=== PATIENT | male | born 1980 | race American Indian/Alaskan Native ===

== ENCOUNTER 2016-11-21 07:38 | Emergency (ER) | payer SELFPAY ==
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
[2016-11-21] MEDS ORDERED: TORADOL IM ONE ×2 (09:03→09:22)
--- NOTE | 2016-11-21 09:21 | Emergency Department Report ---
ED General Adult HPI - General Chief complaint: Back Pain/Injury Stated complaint: RT LEG/LB PAIN Time Seen by Provider: 11/21/16 08:58 Source: patient Mode of arrival: Ambulatory Limitations: No Limitations - History of Present Illness Initial comments: Patient here complaining of right leg pain and left lower back pain that is 9 out of 10. He said he thinks he pulled a muscle because he does heavy lifting at work and after doing heavy lifting that's when the pain started. The pain is achy and use [id number] medication but did not help. 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 She says her right leg is usually larger than his left leg. He is complaining of pain anteriorly to his right leg. Denies any calf pain. Denies any recent long distance travel by airplane or car. Denies any recent surgery. Patient is a smoker. MD Complaint: left lower back pain and right leg pain. Onset/Timin -: days(s) Location: back, right, lower extremity Radiation: non-radiation Severity scale (0 -10): 9 Quality: aching Consistency: constant Improves with: none Worsens with: none Associated Symptoms: denies other symptoms. denies: confusion, chest pain, cough, diaphoresis, fever/chills, headaches, loss of appetite, malaise, nausea/ vomiting, rash, seizure, shortness of breath, syncope, weakness Treatments Prior to Arrival: NSAID - Related Data Previous Rx's Medication Instructions Recorded Last Taken Type Cyclobenzaprine [Flexeril] 10 mg PO TID PRN #12 tablet 11/21/16 Unknown Rx Ibuprofen [Motrin] 600 mg PO Q8H PRN #15 tablet 11/21/16 Unknown Rx Allergies Allergy/AdvReac Type Severity Reaction Status Date / Time seafood Allergy Swelling Uncoded 11/21/16 07:40 ED Review of Systems ROS: Stated complaint: RT LEG/LB PAIN Other details as noted in HPI Comment: All other systems reviewed and negative Constitutional: denies: chills, fever ENT: denies: throat pain, congestion Respiratory: denies: cough, orthopnea, shortness of breath, SOB with exertion, SOB at rest, stridor, wheezing Cardiovascular: denies: chest pain, palpitations, dyspnea on exertion, edema, syncope Gastrointestinal: denies: abdominal pain, nausea, vomiting, diarrhea Genitourinary: denies: urgency, dysuria, frequency, hematuria, discharge, testicular pain, testicular mass Musculoskeletal: back pain (left lower back), arthralgia. denies: joint swelling, myalgia Skin: denies: rash Neurological: denies: headache, weakness, numbness, paresthesias, confusion, abnormal gait, vertigo ED Past Medical Hx - Past Medical History Previous Medical History?: Yes Additional medical history: right leg with blood clot - Surgical History Past Surgical History?: No - Family History Family history: hypertension - Social History Smoking Status: Current Every Day Smoker Substance Use Type: Non Opiate Pain - Medications Home Medications: Home Medications Medication Instructions Recorded Confirmed Last Taken Type Cyclobenzaprine [Flexeril] 10 mg PO TID PRN #12 tablet 11/21/16 Unknown Rx Ibuprofen [Motrin] 600 mg PO Q8H PRN #15 tablet 11/21/16 Unknown Rx ED Physical Exam - General Limitations: No Limitations General appearance: alert, in no apparent distress - Head Head exam: Present: atraumatic, normocephalic, normal inspection - Eye Eye exam: Present: normal appearance, PERRL, EOMI. Absent: periorbital swelling , periorbital tenderness Pupils: Present: normal accommodation - ENT ENT exam: Present: normal exam, normal orophraynx, mucous membranes moist, TM's normal bilaterally, normal external ear exam - Neck Neck exam: Present: normal inspection, full ROM. Absent: tenderness, meningismus, lymphadenopathy - Respiratory Respiratory exam: Present: normal lung sounds bilaterally. Absent: respiratory distress, chest wall tenderness - Cardiovascular Cardiovascular Exam: Present: regular rate, normal rhythm, normal heart sounds - GI/Abdominal GI/Abdominal exam: Present: soft, normal bowel sounds. Absent: distended, tenderness, guarding, rebound, rigid - Extremities Exam Extremities exam: Present: normal inspection, full ROM, normal capillary refill. Absent: tenderness, pedal edema, joint swelling, calf tenderness - Expanded Lower Extremity Exam Right Hip exam: Present: normal inspection, full ROM, pelvic stability. Absent: tenderness, swelling, abrasion, laceration, ecchymosis, deformity, crepidus, dislocation, erythema, external rotation, internal rotation, shortening Upper Leg exam: Present: normal inspection, full ROM. Absent: tenderness, swelling, abrasion, laceration, ecchymosis, deformity, crepidus, dislocation, erythema Knee exam: Present: normal inspection, full ROM, full knee extension. Absent: tenderness, swelling, abrasion, laceration, ecchymosis, deformity, crepidus, dislocation, erythema, effusion, pain w/ pronation/supination Lower Leg exam: Present: normal inspection, full ROM, swelling. Absent: tenderness, abrasion, laceration, ecchymosis, deformity, crepidus, dislocation, erythema, palpable cord, Sondra's sign Ankle exam: Present: normal inspection, full ROM. Absent: tenderness, swelling , abrasion, laceration, ecchymosis, deformity, crepidus, dislocation, erythema Foot/Toe exam: Present: normal inspection, full ROM. Absent: tenderness, swelling, abrasion, laceration, ecchymosis, deformity, crepidus, dislocation, erythema, amputation, puncture wound, foreign body, calcaneal tenderness, tenderness at base of 5th metatarsal, nail avulsion, subungual hematoma Neuro vascular tendon exam: Present: no vascular compromise. Absent: pulse deficit, abnormal cap refill, motor deficit, sensory deficit, tendon deficit, extremity cold to touch, pallor, abnormal 2-point discrimination, decreased fine /light touch, foot drop, peroneal nerve deficit, significant pain with passive ROM of distal joint Gait: Positive: observed and normal - Back Exam Back exam: Present: normal inspection, full ROM, muscle spasm (left lumbar paraspinal). Absent: tenderness, CVA tenderness (R), CVA tenderness (L), paraspinal tenderness, vertebral tenderness, rash noted - Expanded Back Exam Expanded Back exam: Absent: saddle anesthesia Back exam: Positive Straight Leg Raise: Left, Right - Neurological Exam Neurological exam: Present: alert, oriented X3, normal gait, reflexes normal. Absent: motor sensory deficit - Psychiatric Psychiatric exam: Present: normal affect, normal mood - Skin Skin exam: Present: warm, dry, intact, normal color. Absent: rash ED Course Vital Signs 11/21/16 11/21/16 11/21/16 07:40 09:40 11:22 Temperature 98.4 F 98.2 F Pulse Rate 65 79 Respiratory 20 18 18 Rate Blood Pressure 135/71 Blood Pressure 104/46 [Right] O2 Sat by Pulse 100 100 Oximetry - Reevaluation(s) Reevaluation #1: 11/21/16 12:33 Patient given Toradol 60 mg IM and Deltasone 60 mg by mouth which relieved his pain. ED Medical Decision Making - Lab Data Result diagrams: 11/21/16 09:44 11/21/16 09:44 Lab Results 11/21/16 11/21/16 11/21/16 Range/Units 09:15 09:44 09:44 WBC 4.1 L (4.5-11.0) K/mm3 RBC 4.54 (3.65-5.03) M/mm3 Hgb 14.4 (11.8-15.2) gm/dl Hct 43.0 (35.5-45.6) % MCV 95 H (84-94) fl MCH 32 (28-32) pg MCHC 33 (32-34) % RDW 14.0 (13.2-15.2) % Plt Count 198 (140-440) K/mm3 Lymph % (Auto) 32.7 (13.4-35.0) % Morris % (Auto) 9.9 H (0.0-7.3) % Eos % (Auto) 1.1 (0.0-4.3) % Baso % (Auto) 0.9 (0.0-1.8) % Lymph # 1.3 (1.2-5.4) K/mm3 Morris # 0.4 (0.0-0.8) K/mm3 Eos # 0.0 (0.0-0.4) K/mm3 Baso # 0.0 (0.0-0.1) K/mm3 Seg Neutrophils % 55.4 (40.0-70.0) % Seg Neutrophils # 2.3 (1.8-7.7) K/mm3 PT 12.6 (12.2-14.9) Sec. INR 0.95 (0.87-1.13) APTT 28.5 (24.2-36.6) Sec. D-Dimer < 135.00 (0-234) ng/mlDDU Sodium (137-145) mmol/L Potassium (3.6-5.0) mmol/L Chloride (98-107) mmol/L Carbon Dioxide (22-30) mmol/L Anion Gap mmol/L BUN (9-20) mg/dL Creatinine (0.8-1.5) mg/dL Estimated GFR ml/min BUN/Creatinine Ratio % Glucose (75-100) mg/dL Calcium (8.4-10.2) mg/dL Urine Color Yellow (Yellow) Urine Turbidity Clear (Clear) Urine pH 5.0 (5.0-7.0) Ur Specific Singer 1.026 (1.003-1.030) Urine Protein <15 mg/dl (Negative) mg/dL Urine Glucose (UA) Neg (Negative) mg/dL Urine Ketones Neg (Negative) mg/dL Urine Blood Neg (Negative) Urine Nitrite Neg (Negative) Urine Bilirubin Neg (Negative) Urine Urobilinogen < 2.0 (<2.0) mg/dL Ur Leukocyte Esterase Neg (Negative) Urine WBC (Auto) 4.0 (0.0-6.0) /HPF Urine RBC (Auto) 3.0 (0.0-6.0) /HPF U Epithel Cells (Auto) 1.0 (0-13.0) /HPF Urine Mucus Few /HPF /01/02 Range/Units 09:44 WBC (4.5-11.0) K/mm3 RBC (3.65-5.03) M/mm3 Hgb (11.8-15.2) gm/dl Hct (35.5-45.6) % MCV (84-94) fl MCH (28-32) pg MCHC (32-34) % RDW (13.2-15.2) % Plt Count (140-440) K/mm3 Lymph % (Auto) (13.4-35.0) % Morris % (Auto) (0.0-7.3) % Eos % (Auto) (0.0-4.3) % Baso % (Auto) (0.0-1.8) % Lymph # (1.2-5.4) K/mm3 Morris # (0.0-0.8) K/mm3 Eos # (0.0-0.4) K/mm3 Baso # (0.0-0.1) K/mm3 Seg Neutrophils % (40.0-70.0) % Seg Neutrophils # (1.8-7.7) K/mm3 PT (12.2-14.9) Sec. INR (0.87-1.13) APTT (24.2-36.6) Sec. D-Dimer (0-234) ng/mlDDU Sodium 143 (137-145) mmol/L Potassium 4.1 (3.6-5.0) mmol/L Chloride 104.5 (98-107) mmol/L Carbon Dioxide 24 (22-30) mmol/L Anion Gap 19 mmol/L BUN 14 (9-20) mg/dL Creatinine 0.9 (0.8-1.5) mg/dL Estimated GFR > 60 ml/min BUN/Creatinine Ratio 15.55 % Glucose 108 H (75-100) mg/dL Calcium 9.2 (8.4-10.2) mg/dL Urine Color (Yellow) Urine Turbidity (Clear) Urine pH (5.0-7.0) Ur Specific Singer (1.003-1.030) Urine Protein (Negative) mg/dL Urine Glucose (UA) (Negative) mg/dL Urine Ketones (Negative) mg/dL Urine Blood (Negative) Urine Nitrite (Negative) Urine Bilirubin (Negative) Urine Urobilinogen (<2.0) mg/dL Ur Leukocyte Esterase (Negative) Urine WBC (Auto) (0.0-6.0) /HPF Urine RBC (Auto) (0.0-6.0) /HPF U Epithel Cells (Auto) (0-13.0) /HPF Urine Mucus /HPF - Medical Decision Making ED course: Patient with arthralgia right leg and lumbar strain and spasm left lumbar area. I went over labs and urinalysis all with patient. THE patient has a history of blood clot he is Low risk group for DVT Unlikely according to [facility] DVT studies. Patient was not having in any calf tenderness and had negative Homans signs. His right leg is usually larger than his left leg and he said this happened after he has a clot. D-dimer was also within normal range. Signs of bladder infection. I discussed with patient that he will need to follow up with primary care physician in 2-3 days and if he does not have a primary care physician he can follow up with outside Medical Center. Patient was given Deltasone 60 mg by mouth and Toradol 60 mg IM in emergency room which relieved his pain. He is asking to be out of work until Wednesday. Discharged home in stable condition with prescription for Flexeril and Motrin. Encouraged smoking cessation. Critical care attestation.: If time is entered above; I have spent that time in minutes in the direct care of this critically ill patient, excluding procedure time. ED Disposition Clinical Impression: Back spasm, Encounter for smoking cessation counseling Arthralgia of lower leg Qualifiers: Laterality: right Qualified Code(s): M25.561 - Pain in right knee Lumbar strain Qualifiers: Encounter type: initial encounter Qualified Code(s): S39.012A - Strain of muscle, fascia and tendon of lower back, initial encounter Disposition: DISCHARGED TO HOME OR SELFCARE Is pt being admited?: No Does the pt Need Aspirin: No Condition: Stable Instructions: Muscle Strain (ED), Low Back Strain (ED), Lumbar Spinal Stenosis (ED), Arthralgia (ED) Additional Instructions: Rest for 72 hours Take Motrin and Flexeril as prescribed. Not drive or operate heavy machinery while taking Flexeril as this will cause drowsiness. If you back pain continues ,you will need to follow-up with orthopedic doctor. Prescriptions: Cyclobenzaprine [Flexeril] 10 mg PO TID PRN #12 tablet PRN Reason: Muscle Spasm Ibuprofen [Motrin] 600 mg PO Q8H PRN #15 tablet PRN Reason: Pain Referrals: PRIMARY CAREMD [Primary Care Provider] - 3-5 Days [facility] [Outside] - 2-3 Days SAI TRAYLOR MD [Staff Physician] - 2-3 Days Forms: Work/School Release Form(ED)
[2016-11-21] MEDS ORDERED: DELTASONE PO ONE (09:22)
[2016-11-21 09:57] LABS: Bilirubin,Urine NEG (Negative); Blood,Urine NEG (Negative); Ketones,Urine NEG (Negative); Leukocyte Esterase,Urine NEG (Negative); Mucus,Urine FEW /HPF; Nitrite,Urine NEG (Negative); Protein,Urine <15 mg/dL mg/dL (Negative); Urobilinogen,Urine < 2.0 mg/dL (<2.0)
[2016-11-21 11:01] LABS: Basophils % (Auto) 0.9 % (0.0-1.8); Eosinophils % (Auto) 1.1 % (0.0-4.3); Hemoglobin 14.4 gm/dl (11.8-15.2); Mean Corpuscular HGB Conc 33 % (32-34); Mean Corpuscular Hemoglobin 32 pg (28-32); Mean Corpuscular Volume 95 fl (84-94); Platelet Count 198 K/mm3 (140-440); Red Blood Count 4.54 M/mm3 (3.65-5.03); White Blood Count 4.1 K/mm3 (4.5-11.0)
[2016-11-21 11:06] LABS: Anion Gap 19 mmol/L; BUN/Creatinine Ratio 15.55; Blood Urea Nitrogen 14 mg/dL (9-20); Calcium 9.2 mg/dL (8.4-10.2); Carbon Dioxide 24 mmol/L (22-30); Chloride 104.5 mmol/L (98-107); Glucose 108 mg/dL (75-100); Potassium 4.1 mmol/L (3.6-5.0); Sodium 143 mmol/L (137-145)
[2016-11-21 11:17] LABS: INR 0.95 (0.87-1.13)
[2016-11-21 11:18] LABS: Partial Thromboplastin Time 28.5 Sec. (24.2-36.6)
[2016-11-21 11:23] VITALS: BP 104/46
== END 2016-11-21 12:53 | disposition home or self-care (01) ==
LOC: ED 07:38
DX: S39.012A Strain of muscle, fascia and tendon of lower back, initial encounter (principal); M25.561 Pain in right knee; M62.830 Muscle spasm of back; X50.0XXA Overexertion from strenuous movement or load, initial encounter; X50.3XXA Overexertion from repetitive movements, initial encounter; Y93.89 Activity, other specified; Y92.89 Other specified places as the place of occurrence of the external cause; Y99.8 Other external cause status; F17.200 Nicotine dependence, unspecified, uncomplicated
CPT/HCPCS: 36415; 80048; 81001; 85025; 85379; 85610; 85730; 96372; 99283; J1885; J7512